=== PATIENT | female | born 1960 | race Caucasian/White ===

== ENCOUNTER 2018-12-14 02:56 | Emergency (ER) | payer OTHER ==
[2018-12-14 03:03] VITALS: BP 138/81; PULSE 53; TEMP 98.1; BMI 28.3
[2018-12-14] MEDS ORDERED: diphenhydrAMINE HCL 50 MG CAPSULE PO ONE (03:14)
[2018-12-14] MEDS ORDERED: diphenhydrAMINE HCL 50 MG CAPSULE ONE (03:14)
--- NOTE | 2018-12-14 03:14 | PDOC ---
History of Present Illness - General Chief Complaint: Bite Stated Complaint: INSECT BITE History Source: Patient Exam Limitations: No Limitations - History of Present Illness Initial Comments: This is a 58-year-old female who comes in complaining of a bite while sleeping. Patient said she woke up and felt something biting her and now has a red area on her left flank. Patient denies any other complaints. Patient did not take anything for the bite. Patient says the bite itchy. Patient said she was bit just prior to arrival. Allergies: as per nursing notes Past Medical History: none Social history: Lives with family. No smoking. No alcohol. No illicit drugs. Surgical history: None General: No fevers or chills, no weakness, no weight loss HEENT: No change in vision. No sore throat,. No ear pain CardioVascular: no chest discomfort. No shortness of breath Respiratory:No cough, or wheezing. Gastrointestinal: no nausea, vomiting, diarrhea or constipation, No rectal bleeding Genitourinary: No dysuria, hematuria, or frequency Musculoskeletal: No joint or muscle pain or swelling Neurologic: No headache, vertigo, dizziness or loss of consciousness Psychiatric: nor depression Skin: Insect bite while sleeping Endocrine: no increased thirst or abnormal weight change Allergic: no skin or latex allergy All other systems reviewed and normal GENERAL: The patient is awake, alert, and fully oriented, in no acute distress. HEAD: Normal with no signs of trauma. EYES: Pupils equal, round and reactive to light, extraocular movements intact, sclera anicteric, conjunctiva clear. EXTREMITIES:atraumatic, Normal range of motion, no edema. NEUROLOGICAL: Normal speech, normal gait. PSYCH: Normal mood, normal affect. SKIN: Warm, Dry, normal turgor, is an area of erythema on the left flank approximately 3 x 2 in size. There is some slight increase in warmth. There is no discharge. There is no blistering. Assessment and plan: This is a 58-year-old female who was bit by an insect while sleeping most likely a spider. Patient given Benadryl and discharged will follow-up with primary care doctor as needed. Past History - Past Medical History Allergies/Adverse Reactions: Allergies Allergy/AdvReac Type Severity Reaction Status Date / Time Sulfa (Sulfonamide Allergy Unverified 06/08/11 20:01 Antibiotics) Home Medications: Ambulatory Orders Levothyroxine Sodium [Synthroid] 88 mcg PO DAILY 12/14/18 COPD: No Thyroid Disease: Yes - Immunization History Td Vaccination: No - Suicide/Smoking/Psychosocial Hx Smoking Status: No Smoking History: Never smoked Years of Tobacco Use: 0 Number of Cigarettes Smoked Daily: 0 Hx Alcohol Use: No Drug/Substance Use Hx: No Substance Use Type: None Hx Substance Use Treatment: No *Physical Exam - Vital Signs Last Vital Signs Temp Pulse Resp BP Pulse Ox 98.1 F 53 L 16 138/81 100 12/14/18 02:59 12/14/18 02:59 12/14/18 02:59 12/14/18 02:59 12/14/18 02:59 *DC/Admit/Observation/Transfer Diagnosis at time of Disposition: Insect bite Qualifiers: Encounter type: initial encounter Site of insect bite: lower back Qualified Code(s): S30.860A - Insect bite (nonvenomous) of lower back and pelvis, initial encounter - Discharge Dispostion Disposition: HOME Condition at time of disposition: Stable Decision to Admit order: No - Referrals Referrals: Stanley Morales [Primary Care Provider] - - Patient Instructions Additional Instructions: For any itching, swelling, pain take Benadryl one tablet as often as every 4- 6 hours as needed. Return to the emergency department immediately with ANY new, persistent or worsening symptoms. Continue any medications as previously prescribed by your physician. You should follow up with your primary doctor as soon as possible regarding today's emergency department visit. . Please make sure your doctor reviews the results of your emergency evaluation. Thank you for coming to the Emergency Department today for your care. It was a pleasure to see you today. Please note that your evaluation is INCOMPLETE until you follow-up with your doctor. - Post Discharge Activity
== END 2018-12-14 03:19 | disposition home or self-care (01) ==
LOC: FER 02:56
DX: S30.861A Insect bite (nonvenomous) of abdominal wall, initial encounter (principal); E07.9 Disorder of thyroid, unspecified; W57.XXXA Bitten or stung by nonvenomous insect and other nonvenomous arthropods, initial encounter; Y93.89 Activity, other specified; Y92.89 Other specified places as the place of occurrence of the external cause
CPT/HCPCS: 99281-25

== ENCOUNTER 2020-04-13 10:19 | Emergency (ER) | payer OTHER | END 2020-04-13 11:38 | disposition home or self-care (01) | LOC: JVIRT 10:19 | DX: M79.10 Myalgia, unspecified site (principal); R68.83 Chills (without fever) | CPT/HCPCS: C9803; G2012-GT; U0003 ==